=== PATIENT | female | born 1945 | race African-American/Black ===

== ENCOUNTER 2019-05-09 12:23 | Emergency (ER) | payer OTHER ==
[~2019-05-09] VITALS: Ht 165.1 cm; Wt 72.6 kg
[2019-05-09 12:51] LABS: HEMATOCRIT 33.4 % (37.0-47.0); HEMOGLOBIN 10.8 gm/dL (12.0-15.0); MCH 26.1 pg (26.0-34.0); MCHC 32.4 g/dL (28.0-37.0); MCV 80.5 fL (80.0-100.0); PLATELET COUNT 259 thou/uL (150-400); RBC 4.15 mil/uL (4.20-5.00); RDW 14.8 % (10.5-14.5); WBC 5.7 thou/uL (4.0-11.0)
[2019-05-09 12:53] LABS: CALCIUM 9.2 mg/dL (8.5-10.1); CREATININE 1.5 mg/dL (0.6-1.0); POTASSIUM 3.8 mmol/L (3.5-5.1)
[2019-05-09 13:20] LABS: ABSOLUTE NEUTROPHILS 3.7 thou/uL (1.4-8.2); PLATELET ESTIMATE NORMAL
[2019-05-09] MEDS ORDERED: LEVAQUIN 750 M750 MG PO (15:47)
[2019-05-09 16:38] VITALS: BP 150/51
--- NOTE | 2019-05-10 08:29 | EKG ---
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: [place] : 1945 Requested By: Justin Conti Order Number: [id number] MD: Robert Branch Measurements Intervals [place] Rate: 76 P: 74 ID: 123 QRS: 16 QRSD: 73 T: 94 QT: 400 QTc: 450 Interpretive Statements Sinus rhythm Borderline repolarization abnormality Baseline wander in lead(s) V1 No previous ECG available for comparison Electronically Signed On 05-10-2019 8:28:54 VASCULAR TECHNOLOGIST by Robert Branch [email or web address] <ELECTRONICALLY SIGNED> By: Robert Branch MD, [facility] 05/10/19 0828 1241 1241 Robert Branch MD, FACC /EPI
== END 2019-05-09 16:39 | disposition home or self-care (01) ==
LOC: ER 12:23
PROVIDERS: Emergency Medicine
DX: J18.9 Pneumonia, unspecified organism (principal); I10 Essential (primary) hypertension; E78.00 Pure hypercholesterolemia, unspecified; K21.9 Gastro-esophageal reflux disease without esophagitis; F20.0 Paranoid schizophrenia

== ENCOUNTER → 2020-11-01 | Emergency (ER) | payer OTHER ==
[~2020-11-01] VITALS: Ht 160 cm; Wt 70.3 kg
[~2020-11-01] MED LIST: LEVAQUIN 750 M750 MG PO; PREDNISONE 20 M20 MG PO; VALACYCLOVIR1000 MG PO
[2020-11-01 12:45] VITALS: BP 188/98
== END ==
LOC: ER 09:22
DX: B02.9 Zoster without complications (principal); I10 Essential (primary) hypertension; K21.9 Gastro-esophageal reflux disease without esophagitis; E78.00 Pure hypercholesterolemia, unspecified; Z86.73 Personal history of transient ischemic attack (TIA), and cerebral infarction without residual deficits

== ENCOUNTER → 2020-11-23 | Outpatient (CLI) | payer OTHER | LOC: CAT 13:07 | DX: G93.89 Other specified disorders of brain (principal); R41.82 Altered mental status, unspecified ==

== ENCOUNTER 2021-02-17 10:02 | Emergency (ER) | payer OTHER ==
[~2021-02-17] VITALS: Ht 165.1 cm; Wt 65.8 kg
--- NOTE | ~2021-02-17 | EMS ---
[address] [address] EMS Patient Care Report Name: LEAH LOO Room #: DEP DEYA Galarza#: [id number] Admission: 02/17/21 Attend Phys: Discharge: 02/17/21 Date of : 41 Report #: [id number] THIS REPORT FOR: //name// Report Transmitted: 02/18/2021 10:52 EMS Care Summary [place], [place]/[facility] Incident [id number] @ 02/17/2021 09:27 Incident Location [address] [facility] Patient LEAH MICHAEL Female, 75 Years 1945 Patient Address [address] [place], [place] [id number] Patient History Other,Dementia,Hypertension (HTN),Paranoid Schizophrenia, Patient Allergies No known allergies, Patient Medications Haldol, Losartan, Amlodipine, Clonidine, Chief Complaint fall- left shoulder pain Disposition Transported No Lights/[place] Dispatch Reason Falls Transported To [facility] Narrative Arrived to find pt laying supine on floor on snf, covered with a blanket. NH staff stated pt has dementia and is complaining of shoulder pain. NH stated it was an unwitnessed fall but she could not have been on the floor longer than 30 min ago because that's when she had breakfast. [place] staff and [place] [id number] EMS Patient Care Report Name: LEAH LOO Room #: DEP [facility]#: [id number] Admission: 02/17/21 Attend Phys: Discharge: 02/17/21 Date of : 41 Report #: [id number] paperwork indicated pt was not on blood thinners. Pt acting oriented to her normal self but is repeating cuss words. Staff states pt is normally upset and will sometimes swing on you. Pt lifted onto cot and secured to cot with cot straps. Pt placed in back of unit and placed in surgical mask. Pt bgl HIGH however fluids not administered due to high bp. Pt transported without incident. Care to RN, rm 11. Initial Vitals @09:43P: 72,R: 18,BP: 220/94,Pain: 4/10,GCS: 14,Revised Trauma: 12, @09:52P: 74,BP: 215/93,Glucose: -2, Assessments @09:39MENTAL:Person Oriented,Confused,SKIN:HEENT:Head/Face: No Abnormalities,Eyes: No Abnormalities,Neck/Airway: No Abnormalities,LUNG SOUNDS:General: No Abnormalities,Left Upper: No Abnormalities,Right Upper: No Abnormalities,Left Lower: No Abnormalities,Right Lower: No Abnormalities,ABDOMEN:General: No Abnormalities,Left Upper: No Abnormalities,Right Upper: No Abnormalities,Left Lower: No Abnormalities,Right Lower: No Abnormalities,PELVIS//GI:EXTREMITIES:Left Arm: Other,Right Arm: No Abnormalities,Left Leg: No Abnormalities,Right Leg: No Abnormalities,PULSE:NEURO: Impression Extremity Pain Procedures @09:39 ALS Assessment Response: UnchangedSucceeded @09:42 Spinal Motion Restriction Response: UnchangedSucceeded @09:45 IV Therapy - Saline Lock 10cc (20 ga) Site: Antecubital-Right Response: UnchangedSucceeded @09:43 3-Lead ECG Response: UnchangedSucceeded Timeline 09:26,Call Received 09:26,Dispatch Notified 09:27,Dispatched 09:28,En Route 09:36,On Scene 09:38,At Patient 09:39,ALS Assessment,Response: UnchangedSucceeded, 09:42,Spinal Motion Restriction,Response: UnchangedSucceeded, 09:43,3-Lead ECG,Response: UnchangedSucceeded, 09:43,BP: 220/94 M,PULSE: 72,RR: 18 R,SPO2: Ox,ETCO2: ,BG: ,PAIN: 4,GCS: 14, 09:45,IV Therapy - Saline Lock 10cc 20 ga Site: Antecubital-Right,Response: UnchangedSucceeded, [address] [address] EMS Patient Care Report Name: LEAH LOO Room #: DEP Geovanni#: [id number] Admission: 02/17/21 Attend Phys: Discharge: 02/17/21 Date of : 41 Report #: [id number] 09:51,Depart Scene 09:52,BP: 215/93 M,PULSE: 74,RR: R,SPO2: Ox,ETCO2: ,BG: -2,PAIN: ,GCS: , 09:58,At Destination 10:09,Call Closed Disclaimer v1.1 Copyright 2020 [employer] This EMS Care Summary contains data elements from the applicable legal record (which may be displayed differently). It is designed to provide pertinent information for the following purposes: continuity of care, clinical quality, and state data reporting. The complete legal record is available to ED staff and administrators of the receiving hospital in [employer]'s Patient Tracker. All data is provided "as is."
[2021-02-17 10:41] LABS: ABSOLUTE NEUTROPHILS 6.8 thou/uL (1.4-8.2); BASOPHILS 0.2 % (0.0-2.0); HEMATOCRIT 32.1 % (37.0-47.0); HEMOGLOBIN 10.8 gm/dL (12.0-15.0); LYMPHOCYTES 14.9 % (24.0-44.0); MCH 28.2 pg (26.0-34.0); MCHC 33.5 g/dL (28.0-37.0); MCV 84.1 fL (80.0-100.0); MONOCYTES 6.7 % (1.0-8.0); PLATELET COUNT 325 thou/uL (150-400); POLYS 78.2 % (36.0-66.0); RBC 3.82 mil/uL (4.20-5.00); RDW 14.5 % (10.5-14.5); WBC 8.7 thou/uL (4.0-11.0)
[2021-02-17 11:04] LABS: CALCIUM 8.5 mg/dL (8.5-10.1); CREATININE 1.3 mg/dL (0.6-1.0)
[2021-02-17 11:13] LABS: ALBUMIN 3.2 g/dL (3.4-5.0); TOTAL BILIRUBIN 0.3 mg/dL (0.2-1.0); TOTAL PROTEIN 6.4 g/dL (6.4-8.2)
[2021-02-17 17:19] VITALS: BP 170/74
--- NOTE | 2021-02-18 07:08 | EKG ---
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: : 1945 Requested By: Joseph Corey Order Number: [id number] MD: Robert Branch Measurements Intervals [place] Rate: 92 P: 65 TN: 127 QRS: 12 QRSD: 72 T: 170 QT: 322 QTc: 399 Interpretive Statements Sinus rhythm Probable left atrial enlargement Poor R wave progression Nonspecific ST and T wave abnormality Baseline wander in lead(s) V1,V6 Compared to ECG 05/09/2019 12:41:10 No significant changes found Electronically Signed On 02-18-2021 7:07:53 CDT by Robert Branch [email or web address] <ELECTRONICALLY SIGNED> By: Robert Branch MD, FAC 02/18/21 0707 1053 1053 Robert Branch MD, [facility] /EPI
== END 2021-02-17 17:20 | disposition home or self-care (01) ==
LOC: ER 10:02
PROVIDERS: Emergency Medicine
DX: I10 Essential (primary) hypertension (principal); R73.9 Hyperglycemia, unspecified; K21.9 Gastro-esophageal reflux disease without esophagitis; F20.9 Schizophrenia, unspecified; E78.00 Pure hypercholesterolemia, unspecified; W19.XXXA Unspecified fall, initial encounter; Y93.89 Activity, other specified; Y92.89 Other specified places as the place of occurrence of the external cause; Y99.8 Other external cause status

== ENCOUNTER 2021-04-02 16:08 | Inpatient (IN) | payer OTHER ==
[~2021-04-02] VITALS: Ht 160 cm; Wt 53.6 kg
--- NOTE | ~2021-04-02 | EMS ---
[address] [address] EMS Patient Care Report Name: LEAH LOO Room #: 205-P [facility] IN M.R.#: [id number] Admission: 04/02/21 Attend Phys: Shan Estrada MD Discharge: 04/04/21 Date of : 43 Report #: [id number] THIS REPORT FOR: //name// Report Transmitted: 04/12/2021 14:01 EMS Care Summary [place], [place] Incident [id number] @ 04/02/2021 15:34 Incident Location [id number] [place] [address] Patient FERNANDA NICHOLS Female, 75 Years 1945 Patient Address Patient History Behavioral/Psychiatric Disorder,Stroke/CVA, Patient Allergies No known allergies, Patient Medications Haldol, Chief Complaint L SIDE FACIAL DROOP Disposition Transported Lights/[place] Dispatch Reason Stroke/CVA Transported To [facility] Narrative PT FOUND SITTING ON BED IN HER ROOM AT NH. P28 ON SCENE. STAFF STATES THAT APPROX 30 MINS PRIOR TO CALLING EMS PT STARTED TO HAVE SLURRED SPEECH AND INCREASED L SIDE FACIAL DROOP. STAFF STATES THAT PT HAS L SIDE DEFICITS FROM A PREVIOUS STROKE BUT NOW THEY ARE MORE PROFOUND. STAFF STATES THAT THEY ATTEMPTED TO HAVE PT DRINK SOME WATER AND SHE WAS UNABLE TO SWALLOW, WHICH IS ABNORMAL. PT IS CONFUSED PER HER BASELINE PER STAFF. PT HAS NO VISIBLE TRAUMA. [address] [address] EMS Patient Care Report Name: LEAH LOO Room #: 205-[facility] IN M.R.#: [id number] Admission: 04/02/21 Attend Phys: Shan Estrada MD Discharge: 04/04/21 Date of : 41 Report #: [id number] PT UNABLE TO ANSWER ANY EMS QUESTIONS CORRECTLY. NO CHANGES NOTED ENROUTE. Initial Vitals @15:55P: 69,SpO2: 26, @15:52P: 62,R: 16,BP: 148/70,Pain: 0/10,GCS: 14,Glucose: 363,SpO2: 99,Revised Trauma: 12, Assessments @15:43MENTAL:Confused,SKIN:No Abnormalities,HEENT:Head/Face: No Abnormalities,LUNG SOUNDS:General: No Abnormalities,ABDOMEN:General: No Abnormalities,PELVIS//GI:No Abnormalities,EXTREMITIES:PULSE:NEURO:Weakness Left-Sided,Slurred Speech,Facial Droop, Impression Stroke Procedures @15:43 ALS Assessment Response: UnchangedSucceeded @15:47 Stretcher Response: Unchanged @15:54 3-Lead ECG Response: UnchangedSucceeded @15:55 IV Therapy - Saline Lock 0cc (18 ga) Site: Antecubital-Left Response: UnchangedSucceeded @15:58 IV Therapy - Saline Lock 0cc (20 ga) Site: Hand-Left Response: UnchangedFailed Timeline 15:31,Call Received 15:31,Dispatch Notified 15:34,Dispatched 15:34,En Route 15:40,On Scene 15:43,At Patient 15:43,ALS Assessment,Response: UnchangedSucceeded, 15:47,Stretcher,Response: Unchanged 15:52,BP: 148/70 M,PULSE: 62,RR: 16 R,SPO2: 99 Ox,ETCO2: ,B,PAIN: 0,GCS: 14, 15:54,3-Lead ECG,Response: UnchangedSucceeded, 15:55,BP: / M,PULSE: 69,RR: R,SPO2: 26 Ox,ETCO2: ,BG: ,PAIN: ,GCS: , 15:55,IV Therapy - Saline Lock 0cc 18 ga Site: Antecubital-Left,Response: UnchangedSucceeded, 15:58,IV Therapy - Saline Lock 0cc 20 ga Site: Hand-Left,Response: UnchangedFailed, 16:01,Depart Scene 16:06,At Destination 16:17,Call Closed [facility] [address] [place] [address] EMS Patient Care Report Name: JERALD LEAH MICHAEL Room #: 205-P [facility] IN .R.#: [id number] Admission: 04/02/21 Attend Phys: Shan Estrada MD Discharge: 04/04/21 Date of : 41 Report #: [id number] Disclaimer v1.1 Copyright 2020 [employer] This EMS Care Summary contains data elements from the applicable legal record (which may be displayed differently). It is designed to provide pertinent information for the following purposes: continuity of care, clinical quality, and state data reporting. The complete legal record is available to ED staff and administrators of the receiving hospital in [facility]'s Patient Tracker. All data is provided "as is."
[2021-04-02 16:09] VITALS: BP 167/59
[2021-04-02] MEDS ORDERED: ACETAMINOPHEN325 M1 PO (16:23)
[2021-04-02] MEDS ORDERED: NORVASC10 MG PO (16:23)
[2021-04-02] MEDS ORDERED: CLONIDINE HCL0.1 MG PO (16:24)
[2021-04-02] MEDS ORDERED: GLUCOSE4 GM PO (16:25)
[2021-04-02] MEDS ORDERED: HALDOL DEC100 MG/1 M IM (16:26)
[2021-04-02] MEDS ORDERED: HALOPERIDO50 MG/1 M1 IM (16:27)
[2021-04-02] MEDS ORDERED: HYDRALAZINE 10M10 MG PO (16:28)
[2021-04-02] MEDS ORDERED: HYDROCODON-ACE1 EAC7 PO (16:28)
[2021-04-02] MEDS ORDERED: LORAZEPAM 22 MG/1 ML IM (16:29)
[2021-04-02] MEDS ORDERED: COZAAR100 MG PO (16:30)
[2021-04-02] MEDS ORDERED: MILK OF MA400 MG/5 M PO (16:31)
[2021-04-02] MEDS ORDERED: ZUPLENZ8 MG PO (16:32)
[2021-04-02 16:38] LABS: ABSOLUTE NEUTROPHILS 3.6 thou/uL (1.4-8.2); BASOPHILS 0.5 % (0.0-2.0); EOSINOPHILS 0.1 % (0.0-3.0); HEMATOCRIT 34.2 % (37.0-47.0); HEMOGLOBIN 11.8 gm/dL (12.0-15.0); LYMPHOCYTES 32.4 % (24.0-44.0); MCH 28.5 pg (26.0-34.0); MCHC 34.4 g/dL (28.0-37.0); MCV 82.9 fL (80.0-100.0); MONOCYTES 7.9 % (1.0-8.0); PLATELET COUNT 365 thou/uL (150-400); POLYS 59.1 % (36.0-66.0); RBC 4.13 mil/uL (4.20-5.00); RDW 13.8 % (10.5-14.5)
[2021-04-02 16:51] LABS: APTT 29.1 Seconds (24.5-32.8); INR 1.04; PROTIME 11.3 Seconds (10.5-12.1)
[2021-04-02 16:52] LABS: CALCIUM 8.6 mg/dL (8.5-10.1); CREATININE 1.6 mg/dL (0.6-1.0); POTASSIUM 4.6 mmol/L (3.5-5.1)
[2021-04-02 22:22] VITALS: BP 192/102
--- NOTE | 2021-04-02 22:45 | NUR ---
I CONTACTED [facility] NP RE: ELEVATED BP AFTER PREVIOUS DOSE OF HYDRALAZINE. BP CURRENTLY 192/102. NPO. MED REC UP TO DATE IN COMPUTER. INSTRUCTED TO CONTINUE TO MONITOR X 1 HR THEN CALL HER BACK WITH BP.
[2021-04-03 07:17] VITALS: BP 185/58
--- NOTE | 2021-04-03 08:47 | EKG ---
[address] [place] [address] ELECTROCARDIOGRAM REPORT Name: LEAH LOO Room #: 170-15 ADM IN M.R.#: [id number] Admission: 04/02/21 Attend Phys: Shan Estrada MD Discharge: Date of : 41 Report #: [id number] [facility] ED Test Date: 2021-04-02 Test Time: 17:30:55 Pat Name: LEAH MICHAELDepartment: Room: 170 Gender: F Social Services Coordinator: sonya : 1945 Requested By: Pratik Beach Order Number: [id number] MD: Robert Branch Measurements Intervals [place] Rate: 56 P: 79 MD: 128 QRS: -9 QRSD: 91 T: 154 QT: 451 QTc: 436 Interpretive Statements Sinus bradycardia Borderline repolarization abnormality Compared to ECG 02/17/2021 10:53:14 No significant change was found Electronically Signed On 04-03-2021 8:47:45 DIETITIAN CONSULTANT by Robert Branch [email or web address] <ELECTRONICALLY SIGNED> By: Robert Branch MD, [facility] 04/03/21 0847 29 29 Robert Branch MD, [facility] /EPI
[2021-04-03 17:00] VITALS: BP 218/79
[2021-04-03 20:00] VITALS: BP 196/64
[2021-04-03 22:17] VITALS: BP 181/93
[2021-04-03 23:00] VITALS: BP 198/68
[2021-04-03 23:49] VITALS: BP 161/48
[2021-04-04 02:54] LABS: CHOLESTEROL 178 mg/dL (<200); HDL CHOLESTEROL 30 mg/dL (>40); LDL CHOLESTEROL 119 mg/dL (<100); TC:HDL 5.9 Ratio (Not establshd); TRIGLYCERIDE 146 mg/dL (<150); VLDL 29 mg/dL (<40)
[2021-04-04 03:03] LABS: SERUM ASSESSMENT Clear
[2021-04-04 05:38] VITALS: BP 184/86
--- NOTE | 2021-04-04 06:55 | NUR ---
ASSUME CARE 1900. PT STABLE. BP RUNS HIGH. PT A/O TO SELF. DENIES ANY PAIN. PT IS SOMETIMES AGITATED AND IMPULSIVE. ON RESTRAINTS BECAUSE OF ELEOPEMENT RISK. ASSESSMENT CHARTED. POOR PROGRESS WITH POC. SR/SB ON MONITOR JENNIFER WITH SLEEP. NO DISTRESS NOTED WITH PT. INCONTINENT OF URINE. MOVES ALL EXTREMITIES. NO SIGNS OF RESIDUAL NOTED. TREATING HIGH BP WITH HYDRALAZINE PRN. PLAN IS FOR NEURO AND PSYCH TO SEE PT AND DISCUSS FURTHER POC. WILL CONTINUE TO MONITOR AND FOLLOW WITH POC
[2021-04-04 08:04] VITALS: BP 161/43
[2021-04-04 08:54] LABS: CALCIUM 8.6 mg/dL (8.5-10.1); CREATININE 1.3 mg/dL (0.6-1.0)
[2021-04-04] MEDS ORDERED: LORAZEPAM I2 MG/1 M2 SUBLING (11:59)
[2021-04-04] MEDS ORDERED: MORPHINE S100 MG/51 SUBLING (11:59)
[2021-04-04] MEDS ORDERED: HALOPERIDOL2 MG/1 ML PO (11:59)
--- NOTE | 2021-04-04 16:39 | NUR ---
PATIENT DISCHARGED BACK TO FACILITY WITH MEDICAL TRANSPORT. REPORT CALLED TO GARRY SCHMIDT AWARE OF PATIENTS DISCHARGE BACK TO [facility]. IV AND TELE REMOVED. LEGAL GUARDIAN AWARE.
--- NOTE | 2021-04-04 17:25 | NUR ---
Patient admits from [facility]. Discussion of transfer to [facility] however after phys spoke with guardian PA and plan hospice/pallative care. Spoke with [facility] they report patient on and off hospice services. They report she was recently dc from [facility]. Faxed referral to [facility]. Sp with Jose at PA office who gives consent for return to [facility] and hospice. Faxed orders, chart copied. transport for 1700 via [facility]. Attempted with [facility] but 4-5 hour wait.
--- NOTE | 2021-04-05 09:42 | HC ---
[facility] [place] [address] CONSULTATION Name: LEAH LOO Room #: 205-P [facility] IN M.R.#: [id number] Admission: 04/02/21 Attend Phys: Shan Estrada MD Discharge: 04/04/21 Date of : 41 Report #: [id number] THIS REPORT FOR: cc: Alden Hernandez MD, Dennis R MD Kerstein, Andrew H. DO ~ DATE OF SERVICE: 04/03/2021 INPATIENT PSYCHIATRY CL CONSULTATION PRIMARY ATTENDING: Shan Estrada MD CONSULTING PSYCHIATRIST: Roberto Burns DO REASON FOR CONSULTATION: Agitation and refusal for treatment as well as haloperidol dosing. SOURCES OF INFORMATION: Nurse, Lyudmila, in the ER, Emergency Room records and brief interview with the patient, although she is a quite poor historian. CHIEF COMPLAINT: Unspecified. HISTORY OF PRESENT ILLNESS: A 75-year-old -L[place] female who was initially brought to the ER on 04/02. The patient is from [facility]. She was seen complaining of left-sided facial droop. She was last witnessed by others at 3 p.m. and stated that she began to have left-sided facial droop and increasing slurred speech. Per EMS, the patient was noted to be at the facility with prior stroke in 2019. PAST MEDICAL HISTORY: Includes aphasia related to historical stroke, hypertension and schizophrenia. 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 PSYCHIATRIC HISTORY: Includes schizophrenia, paranoid subtype. MEDICATIONS: The best med list I have are acetaminophen, amlodipine 10 mg at bedtime, clonidine 0.1 mg p.o. after meals p.r.n. for hypertension, haloperidol decanoate 150 mg IM monthly, unknown when her last dose was, hydralazine 10 mg daily p.o. p.r.n., hydrocodone 5/325 mg p.o. every 6 hours p.r.n., losartan, magnesium hydroxide, lorazepam. She has previously been on valacyclovir and prednisone. ALLERGIES: No known allergies. SOCIAL HISTORY: Unclear tobacco, alcohol or recreational drug use history. [facility] [address] [place] [address] CONSULTATION Name: LEAH LOO Room #: 205-P [facility] IN ..#: [id number] Admission: 04/02/21 Attend Phys: Shan Estrada MD Discharge: 04/04/21 Date of : 41 Report #: [id number] REVIEW OF SYSTEMS: Unable to get a comprehensive review of systems. PHYSICAL EXAMINATION: Weight 58.74 kilos. Unintelligible speech, unable to comply with cranial nerve testing and I should say the physical exam was done by the ER physician. neuro exam noted. noted. Equal optical laboratory mechanic test. Right leg appears weaker than the left, but difficulty exam as the patient will not comply with testing. Expressive aphasia, chronic, unable to test cranial nerves. VITAL SIGNS: temperature afebrile, pulse 69, respirations 20, BP 196/64, after hydralazine got down to 181/93. Able to stand up, somewhat off balance when backing up. Few words. Of note, I helped the patient to be put in soft restraints. She had ripped out her IV and was trying to exit the ER room. MENTAL STATUS EXAMINATION: Well developed, ill, disheveled appearing black female, appearing stated age. Attention and concentration impaired. Speech verbally spontaneous, few words. Thought process: Linear, but very limited. Thought content: Poverty of thought. Did not appear self-injurious, but was paranoid. Unable to assess well for auditory, visual or tactile hallucinations. Memory thought to be impaired, not formally tested. Insight and judgment were impaired. Fund of knowledge below normal. LABORATORY DATA: The ER did hematology; H and H 7.8 and 34.2, white count 6.0, platelet count 365. Coags: PT 11.3, INR 1.04, APTT 29.1. Chemistry: Sodium 134, potassium 4.6, chloride 99, bicarbonate 26, anion gap 9, BUN 20, creatinine 1.6, estimated GFR 38, glucose 302, calcium 8.6. Urinalysis was not received. COVID-19 test, was an antibody test, negative on 04/02. IMAGING DONE: Head CT on 04/02 showed mildly prominent periventricular microvascular dementia. No findings of acute intracranial abnormality. There are chronic atrophy and ischemic changes. Prominence of ventricles and sulci are most notable in the posterior horn of the left lateral ventricle. She had a head MRI done on 04/03, which showed atrophy and old infarct. No definite acute infarct. Lumbar spine x-ray showed right hip joint replacement. Carotid Doppler, no significant stenosis. The patient is currently on in the hospital including psych meds losartan, potassium 100 mg p.o. at bedtime, Haldol 2 mg oral scheduled at 0800, 1500 and 2100; amlodipine 10 mg p.o. at bedtime; Haldol 2.5 mg IV q. 4 hours p.r.n. for severe agitation; Humalog insulin sliding scale and lorazepam 1 mg q. 6 hours p.r.n. IV push. Primary attending ordered Lovenox 30 mg subcutaneous at bedtime [address] [address] CONSULTATION Name: LEAH LOO Room #: 205-P [facility] IN M.R.#: [id number] Admission: 04/02/21 Attend Phys: Shan Estrada MD Discharge: 04/04/21 Date of : 41 Report #: [id number] and hydralazine 10 mg q. 4 hours p.r.n. IV push. FORMULATION: A 75-year-old black female sent out from [place] for a stroke concern, seen in the Emergency Room where she was being worked up. The patient with poor reality testing, impulsive, paranoid guarded behavior. DIAGNOSES: At this time, transient ischemic attack, resolving; schizophrenia, chronic, paranoid; suspect vascular dementia picture. PLAN AND RECOMMENDATIONS: Continue to treat general medical condition. Haldol 2 mg q. 6 hours scheduled PO, 2.5 mg IV q. 4 hours p.r.n. I recommended primary team avoiding benzodiazepines. I will attempt to find out with pharmacy help when her last Haldol Decanoate was given. Though antipsychotics are a risk factor for stroke it will be difficult to avoid in this patient as she has a chronic schizophrenia history and appears to be hypertensive rather than hypotensive, which would be more concerning for use of an antipsychotic. 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 Time spent on this case is at least 45 minutes, greater than 50% of time was spent in review of records and coordination of care. I will follow along with you and see her in [address] [place] [address] on . <ELECTRONICALLY SIGNED> By: Roberto Burns DO 04/05/2142 2126 0536 Roberto Burns DO /nt
[2021-04-05 14:07] LABS: ANA INTERPRETATION Negative (Negative)
[2021-04-09 11:08] LABS: SYPHILIS AB Reactive (Non Reactive)
--- NOTE | 2021-04-09 18:01 | HC ---
[facility] [place] [address] CONSULTATION Name: LEAH LOO Room #: 205-P [facility] IN M.R.#: [id number] Admission: 04/02/21 Attend Phys: Shan Estrada MD Discharge: 04/04/21 Date of : 41 Report #: [id number] THIS REPORT FOR: cc: Alden Hernandez MD, Dennis R MD Khosla, Parveen K. MD ~ DATE OF SERVICE: 04/03/2021 HISTORY OF PRESENT ILLNESS: A 75-year-old female patient, for which a Neurology consultation was requested for some facial droop in this patient. There is a confusion about the consult on this patient. Emergency Room note was reviewed and it indicated that Emergency Room Doctor talk to me about this patient from Emergency Room. That was never done. In fact, I got the consultation just this morning. Instead of me being consulted, they have consulted [facility] and Neurology consultation was done today when a routine consult was sent to evaluate the patient for the possibility of stroke. I reviewed the patient's records and I tried to examine the patient. This patient provides no history. She tried to talk, but her talk does not make any sense. I do not know what the baseline is, but the records indicate the patient has advanced dementia. On top of that, the patient also has a pretty significant psychiatric problems. Therefore, it is difficult to tell what the patient's baseline is. REVIEW OF SYSTEMS: Positive for both dementia as well as psychiatric problems. She apparently has paranoid schizophrenia, apparently has a high cholesterol. The records indicates the patient has a stroke, causing aphasia. She has a history of hypertension and GERD. This is all the relevant 14-point review of system I can get. PAST MEDICAL HISTORY: Positive for stroke as per records. FAMILY HISTORY: Unavailable. SOCIAL HISTORY: The patient apparently lives in a halfway. PHYSICAL EXAMINATION: Pretty limited. The patient was agitated. She will not follow any commands. Looks like she can move all 4 extremities. When I tried to do the cranial nerve examination in this patient got agitated and was difficult to control. She does not appear to have any respiratory difficulty. VITAL SIGNS: Blood pressure is ___/64, respirations 14, pulse is 68. LABORATORY DATA: Indicated normal white count at 6. GFR of only 38. Blood sugar is 302. Cardiac examination she did not allow. She does not appear to be in respiratory difficulty. There does not appear to be edema. She is a moderately built individual. She had an MRI of the brain, which does not show any acute stroke. It does show a prior stroke. [address] [address] CONSULTATION Name: LEAH LOO Room #: 205-P DIS IN M.R.#: [id number] Admission: 04/02/21 Attend Phys: Shan Estrada MD Discharge: 04/04/21 Date of : 41 Report #: [id number] IMPRESSION: Difficult to tell in this patient. Sometime focal slowing can occur with hyperglycemia or hypoglycemia. The patient appeared to have advanced dementia and I will suggest talking to the family and carry out very conservative care. I ordered a TSH, vitamin B12, RPR and lipid profile in the morning. If that shows any abnormality, the patient can be treated accordingly. Otherwise, I have nothing specific to add, except if conservative care is desired in this patient and will recommend suggesting that. Please call me if there is any question. <ELECTRONICALLY SIGNED> By: Bobby Núñez MD 04/09/21 1801 1930 0232 Bobby Núñez MD /nt
== END 2021-04-04 16:47 | disposition hospice, inpatient (51) | DRG 64 ==
LOC: ER 16:08 → 2N 17:56 → EROBS 17:56 → 2N 04-03 21:40
PROVIDERS: Emergency Medicine; Psychiatry & Neurology Neuromuscular Medicine; ADMIT Hospitalist; ATTEND Hospitalist
DX: I63.9 Cerebral infarction, unspecified (principal); N17.0 Acute kidney failure with tubular necrosis; G45.9 Transient cerebral ischemic attack, unspecified; F23 Brief psychotic disorder; F03.91 Unspecified dementia, unspecified severity, with behavioral disturbance; I12.9 Hypertensive chronic kidney disease with stage 1 through stage 4 chronic kidney disease, or unspecified chronic kidney disease; N18.2 Chronic kidney disease, stage 2 (mild); E11.22 Type 2 diabetes mellitus with diabetic chronic kidney disease; Z66 Do not resuscitate; E78.5 Hyperlipidemia, unspecified; R53.81 Other malaise; K21.9 Gastro-esophageal reflux disease without esophagitis; E78.00 Pure hypercholesterolemia, unspecified; Z20.822 Contact with and (suspected) exposure to COVID-19; I69.320 Aphasia following cerebral infarction; Z79.899 Other long term (current) drug therapy
CPT/HCPCS: 10081